=== PATIENT | female | born 1980 | race Caucasian/White ===

== ENCOUNTER 2017-04-03 00:05 | Outpatient (CLI) | payer MEDICAID | END 2017-04-03 02:10 | disposition home or self-care (01) | LOC: 2LDRP 00:05 → BC 00:05 | DX: O99.89 Other specified diseases and conditions complicating pregnancy, childbirth and the puerperium (principal); R10.9 Unspecified abdominal pain; Z3A.20 20 weeks gestation of pregnancy ==

== ENCOUNTER 2017-04-21 16:20 | Outpatient (CLI) | payer MEDICAID | END 2017-04-21 18:25 | disposition home or self-care (01) | LOC: BC 16:20 → 2LDRP 16:20 → BC 18:25 | DX: O99.89 Other specified diseases and conditions complicating pregnancy, childbirth and the puerperium (principal); R10.30 Lower abdominal pain, unspecified; Z3A.22 22 weeks gestation of pregnancy ==